=== PATIENT | female | born 1985 | race African-American/Black ===

== ENCOUNTER 2019-02-15 22:11 | Emergency (ER) | payer MEDICAID, OTHER ==
[~2019-02-15] VITALS: Ht 162.6 cm; Wt 65.8 kg
[~2019-02-15 22:11] MED LIST: BACTRIM DS TAB1 EAC1 ORAL; NKM; PHENAZOPYRIDIN100 MG PO
[2019-02-15 22:40] VITALS: BP 124/61
--- NOTE | 2019-02-15 22:40 | NUR ---
ED Nurse Note: Pt arrived ED from home. c/o suddenly lost vision on her right eye and recovered later on today . Pt is able to see clearly at this time on her both eye. Pt is A/O X4. Vital signs stable at this time, waiting for orders.
--- NOTE | 2019-02-15 23:26 | Emergency Room Report ---
History of Present Illness General Chief Complaint: General Complaint Source: Patient Present Illness HPI This is a 33-year-old female with no past medical history. She presents with chief complaint of loss of vision a right eye. Onset about 9 hours ago. Lasted about 20 minutes. No fine now. She also complaining of flushing sensation in her heart for the last 2 weeks. On and off. No pain. No fever or chills. She occasional palpitation. Denies any other complaint. no exertional pain. No slurred speech. No focal deficit. Allergies: Coded Allergies: ACETAMINOPHEN (Verified Allergy, Mild, Shortness of Breath, 01/24/14) HYDROCODONE (Verified Allergy, Mild, Shortness of Breath, 01/24/14) Patient History Past Medical History: see triage record, old chart reviewed Past Surgical History: none Pertinent Family History: none Social History: Denies: smoking Last Menstrual Period: currently on it Now: No : 2 Para: 2 Immunizations: other Reviewed Nursing Documentation: PMH: Agreed; PSxH: Agreed Review of Systems Eye: Reports: blurred vision; Denies: eye pain ENT: Denies: ear pain, nose congestion, throat swelling Respiratory: Denies: cough, shortness of breath Cardiovascular: Denies: chest pain, palpitations Gastrointestinal: Denies: abdominal pain, diarrhea, nausea, vomiting Musculoskeletal: Denies: back pain, joint pain Skin: Denies: rash Neurological: Denies: headache, numbness Endocrine: Denies: increased thirst, increased urine Hematologic/Lymphatic: Denies: easy bruising All Other Systems: negative except mentioned in HPI Physical Exam Vital Signs Date Time Temp Pulse Resp B/P (MAP) Pulse Ox O2 Delivery O2 Flow Rate FiO2 02/15/19 22:13 98.2 77 18 96 Room Air vitals normal Sp02 EP Interpretation: reviewed, normal General Appearance: well appearing, no apparent distress, alert Head: normocephalic, atraumatic Eyes: right eye other - Funduscopic exam show sharp disc. No evidence of any occlusion.; bilateral eye PERRL, bilateral eye EOMI ENT: hearing grossly normal, normal pharynx Neck: full range of motion, supple, no meningismus Respiratory: chest non-tender, lungs clear, normal breath sounds Cardiovascular #1: regular rate, rhythm, no murmur Gastrointestinal: normal bowel sounds, non tender, no mass, no organomegaly, no bruit, non-distended Musculoskeletal: back normal, gait/station normal, normal range of motion Psychiatric: mood/affect normal Skin: warm/dry Medical Decision Making Diagnostic Impression: Primary Impression: Palpitations Additional Impression: Acute loss of vision Qualified Codes: H53.131 - Sudden visual loss, right eye ER Course She presents with loss of vision in her right eye. I see no evidence of TIA or CVA. No evidence of deep venous or arterial occlusion. Vision is normal now. No evidence of ACS, PE, dissection with her palpitation. Heart rate is normal. No ectopies. Last Vital Signs Date Time Temp Pulse Resp B/P (MAP) Pulse Ox O2 Delivery O2 Flow Rate FiO2 02/15/19 22:13 98.2 77 18 96 Room Air Status: unchanged Disposition: HOME, SELF-CARE Condition: Stable Referrals: [facility]ERR[facility] (PCP) Additional Instructions: Follow-up with your doctor in 7 days. Recommend see an eye doctor for vision check. Return if worse. Tommy Vallejo MD February 15, 2019 23:26
[2019-02-15 23:30] VITALS: BP 123/60
--- NOTE | 2019-02-15 23:30 | NUR ---
ER DISCHARGE NOTE: Patient is cleared to be discharged per Dr. Vallejo. Pt is aox4 on room air with stable vital signs. Pt was given dc and prescription instructions and was able to verbalize understanding. Pt's ID band removed. Pt is able to ambulate with steady gait and took all belongings.
== END 2019-02-15 23:30 | disposition home or self-care (01) ==
LOC: EMR 22:44
DX: H53.131 Sudden visual loss, right eye (principal); R00.2 Palpitations; Z88.6 Allergy status to analgesic agent
CPT/HCPCS: 99281

== ENCOUNTER 2019-08-06 14:40 | Emergency (ER) | payer OTHER ==
[~2019-08-06] VITALS: Ht 162.6 cm; Wt 63.5 kg
--- NOTE | 2019-08-06 14:51 | NUR ---
ED Nurse Note: Patient reports having her LMP on 07/27/2019 but after Halloween she reports being worried because she is still bleeding. Pt c/o LLQ pain since yesterday with N/V. Pt also reports having bright red blood. Pt rates pain at 7/10. Pt is A&O x4, V/S stable with no s/s of acute distress noted at this time.
[2019-08-06 14:53] VITALS: BP 121/79
[2019-08-06] MEDS ORDERED: VENTOLIN HFA18 GM INH (14:55)
--- NOTE | 2019-08-06 15:00 | NUR ---
ED Nurse Note: Urine sent down to the lab.
[2019-08-06 15:14] LABS: APPEARANCE,URINE SLIGHTLY CLOUDY; BILIRUBIN, URINE NEGATIVE (NEGATIVE); GLUCOSE, URINE (UA) NEGATIVE (NEGATIVE); KETONES,URINE 1+ (NEGATIVE); LEUKOCYTE ESTERASE ,URINE 1+ (NEGATIVE); NITRITE,URINE NEGATIVE (NEGATIVE); PH,URINE 5 (4.5-8.0); PROTEIN,URINE 2+ (NEGATIVE); UROBILINOGEN,URINE 1 MG/DL (0.0-1.0)
[2019-08-06 15:17] LABS: COLOR,URINE YELLOW
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
[2019-08-06 15:43] LABS: BASOPHILS % (AUTO) 1.5 % (0.0-2.0); EOSINOPHILS % (AUTO) 2.8 % (0.0-3.0); HEMATOCRIT 36.5 % (37.0-47.0); HEMOGLOBIN 12.7 G/DL (12.0-16.0); LYMPHOCYTES % (AUTO) 39.2 % (20.0-45.0); MEAN CORPUSCULAR VOLUME 89 FL (80-99); MONOCYTES % (AUTO) 7.5 % (1.0-10.0); PLATELET COUNT 267 K/UL (150-450); RED BLOOD COUNT 4.11 M/UL (4.20-5.40); RED CELL DISTRIBUTION WIDTH 10.8 % (11.6-14.8); WHITE BLOOD COUNT 5.6 K/UL (4.8-10.8)
[2019-08-06 15:49] LABS: INR 0.9 (0.9-1.1)
[2019-08-06 15:52] LABS: ANION GAP 11 mmol/L (5-15); BLOOD UREA NITROGEN 11 mg/dL (7-18); CALCIUM 9.3 MG/DL (8.5-10.1); CARBON DIOXIDE 28 MMOL/L (21-32); CHLORIDE 105 MMOL/L (98-107); CREATININE 0.8 MG/DL (0.55-1.30); POTASSIUM 3.5 MMOL/L (3.5-5.1); SODIUM 143 MMOL/L (136-145)
[2019-08-06 15:56] LABS: ALANINE AMINOTRANSFERASE 29 U/L (12-78); ALKALINE PHOSPHATASE 81 U/L (46-116); ASPARTATE AMINO TRANSFERASE 20 U/L (15-37); BILIRUBIN,TOTAL 0.7 MG/DL (0.2-1.0)
[2019-08-06] MEDS ORDERED: cefTRIAXone 1 GM in NS 55 ML IVPB ONE (16:00)
[2019-08-06] MEDS ORDERED: Ketorolac 30mg Inj IV ONE (16:00)
[2019-08-06 16:53] VITALS: BP 118/74
--- NOTE | 2019-08-06 18:23 | Diagnostic Imaging Report ---
Indication:Lower abdominal and pelvic pain Technique: Grayscale and duplex Doppler imaging of the pelvis performed utilizing a transabdominal and endovaginal scan. Comparison: None Findings: The size, contour, and configuration of the uterus is within normal limits. The endometrium is uniformly echogenic and normal in thickness. Uterus measures 8 x 6 x 4.4 cm. Endometrium is approximately 18 mm. The ovaries appear normal bilaterally with good dopplerable blood flow. There is no significant free fluid identified. Right ovary 2.9 x 1.8 x 3.5 cm. Left ovary 2.4 x 1.8 x 2.6 cm. Few follicles noted. IMPRESSION: Negative pelvic ultrasound. No acute findings.
[2019-08-06] MEDS ORDERED: NITROFURANTOIN100 M2 ORAL (18:48)
[2019-08-06 18:53] VITALS: BP 121/79
[2019-08-06 18:59] VITALS: BP 118/74
--- NOTE | 2019-08-06 19:01 | NUR ---
ER DISCHARGE NOTE: Patient is cleared to be discharged per ERMD, pt is aox4, on room air, with stable vital signs. pt was given dc and prescription instructions, pt was able to verbalize understanding, pt id band and iv site removed without complications. pt is able to ambulate with steady gait. pt took all belongings.
== END 2019-08-06 19:02 | disposition home or self-care (01) ==
LOC: EMR 15:15
DX: N30.00 Acute cystitis without hematuria (principal); R10.2 Pelvic and perineal pain; N92.6 Irregular menstruation, unspecified; J45.909 Unspecified asthma, uncomplicated; Z88.6 Allergy status to analgesic agent
CPT/HCPCS: 36415; 76856; 80053; 80307; 81003; 81025; 83690; 85025; 85610; 85730; 87086; 87210; 87491; 87590; 96361; 96365; 96375; J0696; J1885; Z7502; 99284; J7030

== ENCOUNTER 2020-08-25 14:34 | Emergency (ER) | payer OTHER ==
[~2020-08-25] VITALS: Ht 162.6 cm; Wt 63.5 kg
[~2020-08-25 14:34] MED LIST changes: +NITROFURANTOIN100 M2 ORAL; +VENTOLIN HFA18 GM INH
[2020-08-25 14:40] VITALS: BP 119/76
--- NOTE | 2020-08-25 14:40 | NUR ---
ED Nurse Note: Pt walked in to ED from home c/o white creamy vaginal discharge with fishy odor x couple of days. Denies hematuria adn dysuria. Afebrile. No SOB, on room air. ERMD at bedside.
[2020-08-25] MEDS ORDERED: Lidocaine 1% MPF 10mg/ml 5ml INJ ONE (15:15)
[2020-08-25] MEDS ORDERED: Azithromycin 250mg tab ORAL ONE (15:15)
[2020-08-25 15:44] LABS: APPEARANCE,URINE CLEAR; BILIRUBIN, URINE NEGATIVE (NEGATIVE); COLOR,URINE YELLOW; GLUCOSE, URINE (UA) NEGATIVE (NEGATIVE); KETONES,URINE NEGATIVE (NEGATIVE); LEUKOCYTE ESTERASE ,URINE NEGATIVE (NEGATIVE); NITRITE,URINE NEGATIVE (NEGATIVE); PH,URINE 6 (4.5-8.0); PROTEIN,URINE NEGATIVE (NEGATIVE); UROBILINOGEN,URINE NORMAL MG/DL (0.0-1.0)
--- NOTE | 2020-08-25 16:00 | NUR ---
ED Nurse Note: Pt cleared by ERMD for discharge. DC instructions was given and explained to pt and verbalized understanding of teachings. All medical deviecs such as ID band removed. Pt is AAO x4, ambulatory and left with all personal belongings.
[2020-08-25 16:30] VITALS: BP 121/79
--- NOTE | 2020-08-25 17:56 | Emergency Room Report ---
History of Present Illness General Chief Complaint: Vaginal Source: Patient Present Illness HPI 34-year-old female presents to ED for evaluation. States that she has been experiencing a white vaginal discharge for the last 3 days. Denies pain. Denies any dysuria. States that her partner recently tested positive for chlamydia. Denies any vaginal bleeding. No other aggravating relieving factors. 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: No Patient History Past Medical History: asthma Past Surgical History: none Pertinent Family History: none Social History: Denies: smoking, alcohol use, drug use Last Menstrual Period: 08/15/20 Now: No Immunizations: UTD Reviewed Nursing Documentation: PMH: Agreed; PSxH: Agreed Nursing Documentation-PMH Hx Cardiac Problems: No Hx Asthma: Yes Review of Systems All Other Systems: negative except mentioned in HPI Physical Exam Vital Signs Date Time Temp Pulse Resp B/P (MAP) Pulse Ox O2 Delivery O2 Flow Rate FiO2 08/25/20 14:39 97.9 92 16 119/76 (90) 95 Room Air Sp02 EP Interpretation: reviewed, normal General Appearance: no apparent distress, alert, GCS 15, non-toxic Head: normocephalic, atraumatic Eyes: bilateral eye normal inspection, bilateral eye PERRL ENT: hearing grossly normal, normal pharynx, no angioedema, normal voice Neck: full range of motion, supple/symm/no masses Respiratory: chest non-tender, lungs clear, normal breath sounds, speaking full sentences Cardiovascular #1: regular rate, rhythm, no edema Cardiovascular #2: 2+ carotid (R), 2+ carotid (L), 2+ radial (R), 2+ radial (L), 2+ dorsalis pedis (R), 2+ dorsalis pedis (L) Gastrointestinal: normal bowel sounds, non tender, soft, non-distended, no guarding, no rebound Rectal: deferred Genitourinary: normal inspection, no CVA tenderness, other - Disability Specialist present. No CMT. White discharge noted no adnexal tenderness Musculoskeletal: back normal, normal range of motion, gait/station normal, non- tender Neurologic: alert, motor strength/tone normal, oriented x3, sensory intact, responsive, speech normal Psychiatric: judgement/insight normal, memory normal, mood/affect normal, no suicidal/homicidal ideation Reflexes: 3+ bicep (R), 3+ bicep (L), 3+ tricep (R), 3+ tricep (L), 3+ knee (R), 3+ knee (L) Skin: no rash Lymphatic: no adenopathy Medical Decision Making Diagnostic Impression: Primary Impression: Cervicitis ER Course Hospital Course 34-year-old female presents with vaginal discharge. Partner recently tested positive for chlamydia Differential diagnoses include: Cervicitis, UTI, yeast infection, STD Clinical course Patient placed on stretcher in ED. After initial history, physical exam reveals a female in no acute distress. 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 There is white discharge noted. Wet mount collected Urine -no evidence of UTI Wet mount shows no yeast cells no clue cells no trichomonas Given Rocephin and azithromycin in ED. Discussed findings with patient. Safe for discharge with close outpatient follow-up. I will provide STD clinic referrals Diagnosis -cervicitis Stable and discharged to home. Followup with PMD/[facility]. Return to ED if symptoms recur or worsen Laboratory Tests Test 08/25/20 14:46 Urine Color Yellow Urine Appearance Clear Urine pH 6 (4.5-8.0) Urine Specific [place] 1.020 (1.005-1.035) Urine Protein Negative (NEGATIVE) Urine Glucose (UA) Negative (NEGATIVE) Urine Ketones Negative (NEGATIVE) Urine Blood 4+ (NEGATIVE) H Urine Nitrite Negative (NEGATIVE) Urine Bilirubin Negative (NEGATIVE) Urine Urobilinogen Normal MG/DL (0.0-1.0) Urine Leukocyte Esterase Negative (NEGATIVE) Urine RBC 20-30 /HPF (0 - 2) H Urine WBC 0-2 /HPF (0 - 2) Urine Squamous Epithelial Cells Many /LPF (NONE/OCC) H Urine Bacteria Few /HPF (NONE) Urine HCG, Qualitative Negative (NEGATIVE) Last Vital Signs Date Time Temp Pulse Resp B/P (MAP) Pulse Ox O2 Delivery O2 Flow Rate FiO2 08/25/20 16:30 97.9 98 19 121/79 100 Room Air Status: improved Disposition: HOME, SELF-CARE Condition: Stable Referrals: [facility] Patient Instructions: Cervicitis, [id number] Zachary Winn MD Aug 25, 2020 17:56
== END 2020-08-25 16:30 | disposition home or self-care (01) ==
LOC: EMR 14:53
DX: N72 Inflammatory disease of cervix uteri (principal); Z88.6 Allergy status to analgesic agent
CPT/HCPCS: 81003; 81025; 87210; 96372; J0696; Q0144; Z7502; 99283